=== PATIENT | female | born 1970 ===

== ENCOUNTER 2024-07-18 17:31 | Outpatient (REF) | payer BC, SELFPAY ==
--- NOTE | 2024-07-18 15:17 | PAPFT_PTH ---
PATIENT: Rocio Tejada LOC: [facility]#:[id number] AGE/SX: 54/F ROOM: RE07/18/[address]: Trisha Frost : 1970 BED: DIS: 07/18/2024 SPEC #: [id number] RECD: 07/19/24 13:04 STATUS: CONNOR REAbi #: [id number] SHARLA: 07/18/24 15:[address]: Trisha Frost DEPT: [facility] Cytology RECD BY: Lydia Nix ENTERED: 07/19/24 13:04 SP TYPE: PAPFT OTHR DR: Unknown,Unknown Tissues: 1 - CX/ENDOCX FOR PAP SMEARS Procedures: PAP THIN PREP/[facility] Screening HPV DNA PROBE Comments: [id number] (HPV 16 & 18/45)
[2024-07-18 21:16] LABS: HGB 13.6 g/dL (11.2-15.7); MCH 31.3 pg (27.0-33.0); MCHC 33.2 % (32.0-36.0); MCV 95 fL (80-95); MPV 9.6 fL (8.0-11.0); Platelet Count 370 10^3/uL (130-400); RBC 4.34 10^6/uL (3.93-5.22); RDW 12.5 % (11.7-14.6); RDW-SD 43.6 fL; WBC 8.69 10^3/uL (4.4-10.8)
[2024-07-18 21:35] LABS: ALT 23 U/L (14-59); AST 25 U/L (15-37); Albumin 4.2 g/dL (3.4-5.0); Alkaline Phosphatase 72 U/L (46-116); Anion Gap 7.5 mmol/L (3-11); BUN 8 mg/dL (7-18); Bilirubin, Total 0.3 mg/dL (0.2-1.0); CO2 28.5 mmol/L (21.0-32.0); CREATININE 0.7 mg/dL (0.55-1.02); Calcium 9.9 mg/dL (8.5-10.1); Calculated LDL 123 mg/dL (<100); Chloride 103 mmol/L (98-107); Cholesterol 232 mg/dL (<200); Estimated GFR 103.35 (mL/min/1.73m2); Glucose 100 mg/dL (74-106); HDL Cholesterol 72 mg/dL (>or=50); Potassium 4.1 mmol/L (3.5-5.1); Sodium 139 mmol/L (136-145); TSH (W/Ref FT4) 1.84 uIU/mL (0.36-3.74); Total Protein 7.6 g/dL (6.4-8.2); Triglyceride 187 mg/dL (<150)
== END 2024-07-18 17:32 | disposition home or self-care (01) ==
LOC: NCHCN 17:31
PROVIDERS: Visit Provider Family Medicine
DX: Z12.4 Encounter for screening for malignant neoplasm of cervix (principal); R53.83 Other fatigue; Z13.220 Encounter for screening for lipoid disorders
CPT/HCPCS: 80053; 80061; 85027; 88142; 84443; 87624